=== PATIENT | female | born 1945 | race Hispanic/Latino ===

== ENCOUNTER 2017-12-21 09:11 | Emergency (ER) | payer MEDICARE ==
[~2017-12-21 09:11] MED LIST: HYDR-2132 PO; LOSA50TA37 PO; RIVA10TA PO
[2017-12-21] MEDS ORDERED: DIAZEPAM 5 MG TABLET ONE (09:37)
[2017-12-21 10:52] LABS: ALBUMIN 3.7 g/dL (3.5-5.0); BILIRUBIN,TOTAL 0.3 mg/dL (0.2-1.0); CREATININE 0.7 mg/dL (0.5-1.5); POTASSIUM 4.7 mmol/L (3.5-5.1); TOTAL PROTEIN, SERUM 7.7 g/dL (6.0-8.3)
== END 2017-12-21 11:59 | disposition home or self-care (01) ==
LOC: EDH 09:11
DX: M43.6 Torticollis (principal); R03.0 Elevated blood-pressure reading, without diagnosis of hypertension
CPT/HCPCS: 36415; 71045; 80053; 82550; 84484; 93005

== ENCOUNTER 2017-12-30 15:38 | Emergency (ER) | payer MEDICARE ==
[2017-12-30] MEDS ORDERED: IBUPROFEN 400 MG TABLET ONE (16:15)
== END 2017-12-30 17:20 | disposition home or self-care (01) ==
LOC: EDH 15:38
DX: S16.1XXA Strain of muscle, fascia and tendon at neck level, initial encounter (principal); S46.812A Strain of other muscles, fascia and tendons at shoulder and upper arm level, left arm, initial encounter; S46.811A Strain of other muscles, fascia and tendons at shoulder and upper arm level, right arm, initial encounter; X50.3XXA Overexertion from repetitive movements, initial encounter; Y93.89 Activity, other specified; Y92.89 Other specified places as the place of occurrence of the external cause; Y99.8 Other external cause status
CPT/HCPCS: 72040

== ENCOUNTER 2018-05-24 16:01 | Emergency (ER) | payer MEDICARE ==
[~2018-05-24 16:01] MED LIST changes: +LOSA50TA25 PO; -LOSA50TA37 PO
[2018-05-24] MEDS ORDERED: MORPHINE SULFATE 4 MG/1ML SYG ONE (17:34)
== END 2018-05-24 19:08 | disposition home or self-care (01) ==
LOC: EDH 16:01
DX: M54.5 Low back pain (principal); I10 Essential (primary) hypertension; Z98.890 Other specified postprocedural states
CPT/HCPCS: 72131; 96372; 99284; J2270

== ENCOUNTER 2019-06-09 09:13 | Emergency (ER) | payer MEDICARE ==
[~2019-06-09 09:13] MED LIST changes: -LOSA50TA25 PO; +LOSA50TA64 PO
[2019-06-09] MEDS ORDERED: ACETAMINOPHEN-CODEINE 300/30MG TAB ONE (10:23)
[2019-06-09] MEDS ORDERED: TETANUS/DIPHTHERIA TOXOID [ADULT] 0.5 ML VIAL IM ONE (10:24)
[2019-06-09] MEDS ORDERED: OCTYL 2-CYANOACRYLATE 1 EACH TP ONE (11:09)
== END 2019-06-09 12:26 | disposition home or self-care (01) ==
LOC: EDH 09:13
DX: S01.111A Laceration without foreign body of right eyelid and periocular area, initial encounter (principal); I10 Essential (primary) hypertension; W18.39XA Other fall on same level, initial encounter; Y93.89 Activity, other specified; Y92.89 Other specified places as the place of occurrence of the external cause; Y99.8 Other external cause status
CPT/HCPCS: 12011; 70450; 70486; 72125; 90471; 90714; 93005

== ENCOUNTER 2020-02-19 06:50 | Inpatient (IN) | payer MEDICARE ==
[2020-02-15 12:35] LABS: APPEARANCE,URINE Clear (CLEAR); BILIRUBIN,URINE Negative (NEGATIVE); COLOR,URINE Yellow (YELLOW); GLUCOSE, URINE (UA) Negative (NEGATIVE); KETONES,URINE Negative (NEGATIVE); LEUKOCYTE ESTERASE ,URINE Negative (NEGATIVE); NITRATE,URINE Negative (NEGATIVE); OCCULT BLOOD,URINE Negative (NEGATIVE); PROTEIN,URINE Negative (NEGATIVE)
[2020-02-15 13:11] LABS: INR 1.07 (0.85-1.15); PROTHROMBIN TIME 11.5 SEC (9.6-11.6)
[2020-02-18 15:08] VITALS: BP 147/57
[2020-02-19] VITALS (25 sets, daily range): BP systolic 113–173; BP diastolic 45–82
[~2020-02-19] VITALS: Ht 147.3 cm; Wt 57.6 kg
[~2020-02-19 06:50] MED LIST changes: +DICL4100G TP; +ERGO500014 PO; -HYDR-2132 PO; +MEMA1CAP4 PO; +QUET25TA PO; -RIVA10TA PO
--- NOTE | 2020-02-19 08:30 | NUR ---
preop pt made comfortable in bed. pt alert and oriented at this time but according to daughter pt does have dementia and will get agitated later in the day. will have daughter sign consents. pt does have large bruise to left upper arm from old blood draw. daughter left with pt in room
[2020-02-19] MEDS ORDERED: LACTATED RINGERS 1000ML 1,000 ML IV ONE (08:47)
[2020-02-19] MEDS: CEFAZOLIN SODIUM 1 GM VIAL IVP ONE ×2 (09:33→11:20)
--- NOTE | 2020-02-19 09:49 | NUR ---
edema left knee Addendum: 02/19/20 at 0954 by CHARI ALONZO RN RN Amended: Links added.
[2020-02-19] MEDS ORDERED: CEFAZOLIN SODIUM 1 GM VIAL ONE (10:00)
--- NOTE | 2020-02-19 10:39 | NUR ---
BELONGINGS DAUGHTER TOOK BELONGINGS AND TAKEN TO OR VIA BED
[2020-02-19] MEDS ORDERED: LIDOCAINE PF 2% 5ML ABBOJECT ONE (10:40)
[2020-02-19] MEDS ORDERED: DEXAMETHASONE SOD PHOSPHATE 10MG/ML 1ML VIAL ONE (10:41)
[2020-02-19] MEDS ORDERED: ONDANSETRON HCL 4 MG/2 ML VIAL ONE (10:41)
[2020-02-19] MEDS ORDERED: FENTANYL CITRATE PF 50 MCG/1 ML 2ML VIAL ONE (10:41)
[2020-02-19] MEDS ORDERED: PROPOFOL 10 MG/ML 20ML VIAL IV ONE (10:41)
[2020-02-19] MEDS ORDERED: MIDAZOLAM HCL 1 MG/ML 2ML VIAL ONE (10:41)
[2020-02-19] MEDS ORDERED: ROCURONIUM 10MG/1ML SYR 10 MG/ML ML ONE (10:42)
[2020-02-19] MEDS ORDERED: ROPIVACAINE 0.5% 5MG/ML 30ML IJ ONE (10:54)
[2020-02-19] MEDS ORDERED: EPHEDRINE SULFATE 50 MG/ML AMPULE ONE (11:00)
[2020-02-19] MEDS ORDERED: TRANEXAMIC ACID 1000MG/10ML ONE (11:43)
[2020-02-19] MEDS ORDERED: CEFAZOLIN SODIUM 1 GM VIAL IRRIG ONE (11:55)
[2020-02-19] MEDS ORDERED: GLYCOPYRROLATE 1 MG/5 ML SYRINGE ONE (12:31)
[2020-02-19] MEDS ORDERED: NEOSTIGMINE 5MG/5ML SYR IV ONE (12:31)
[2020-02-19] MEDS: SODIUM CHLORIDE 0.9% 1000ML 1,000 ML IV SCH ×2 (12:38→21:38)
[2020-02-19] MEDS ORDERED: LIDOCAINE HCL-MPF 1% 2ML VIAL IV PRN (12:45)
[2020-02-19] MEDS ORDERED: FERROUS FUMARATE 324 MG TABLET PO PRN (12:45)
[2020-02-19] MEDS ORDERED: TEMAZEPAM 15 MG CAPSULE PO PRN (12:45)
[2020-02-19] MEDS: ACETAMINOPHEN EXTRA STRENGTH 500 MG TABLET PO SCH ×2 (12:45→20:01)
[2020-02-19] MEDS ORDERED: DiphenhydrAMINE HCL 50 MG/ML VIAL IVP PRN (12:45)
[2020-02-19] MEDS ORDERED: KETOROLAC TROMETHAMINE 15MG/ML IV PRN (12:45)
[2020-02-19] MEDS ORDERED: POTASSIUM CHLORIDE 20 MEQ ERTAB PO PRN (12:45)
[2020-02-19] MEDS ORDERED: ONDANSETRON HCL 4 MG/2 ML VIAL IVP PRN (12:45)
[2020-02-19] MEDS ORDERED: TRAMADOL HCL 50 MG TABLET PO PRN (12:45)
[2020-02-19] MEDS ORDERED: POTASSIUM CHLORIDE 20MEQ/100ML 100 ML IV PRN (12:45)
[2020-02-19] MEDS ORDERED: CALCIUM CARBONATE 500 MG TABLET PO PRN (12:45)
[2020-02-19] MEDS ORDERED: POTASSIUM CHLORIDE 10% ELIXIR 20 MEQ/15 ML UDCUP PO PRN (12:45)
[2020-02-19] MEDS ORDERED: MEPERIDINE-PF 25 MG/ML SYG ONE ×2 (13:22→13:39)
[2020-02-19] MEDS: OXYCODONE HCL 5 MG TAB PO PRN ×2 (14:58→23:52)
--- NOTE | 2020-02-19 16:29 | NUR ---
pt is very drowsy with severe pain to involved extremity.Explain to patient that Physical therapist will come in tomorrow to initiate PT Evaluation and treatment.Patient verbally agreed.Notified MARVIN Mi regarding pt's current condition and not able to initiate skilled Physical Therapy evaluation this PM. Addendum: 02/19/20 at 1633 by RON LI, PT PT Amended: Links added.
--- NOTE | 2020-02-19 17:00 | NUR ---
cm note met with patient and states resides at home alone, independent [facility] ambulation and adls. no dme. no services, has 2 daughters that assist her as needed. [facility]. request i speak to daughter ron, call made to ron daughter and states dcplan is to [facility]. choice letter obtained, referral faxed darshana haynes, Addendum: 02/19/20 at 1818 by DAVY MANJARREZ CM Amended: Links added.
[2020-02-19] MEDS: CEFAZOLIN SODIUM 1 GM VIAL IVP SCH (17:37)
[2020-02-19 17:46] LABS: BF LYMPHOCYTE 91 %
[2020-02-19 18:08] LABS: APPEARANCE BODY FLUID BLOODY (CLEAR); BODY FLUID WBC 19 /cu. mm.; COLOR,BODY FLUID PINK (LT YELLOW); SPECIMENTYPE,BODY FLUID SYNOVIAL; TOTAL VOLUME,BODY FLUID 5 mL
[2020-02-19 18:09] LABS: BODY FLUID RBC 6625 /cu. mm.
--- NOTE | 2020-02-19 18:18 | NUR ---
cm note spoke to alison thomas at [facility]/ [facility] and states pt is accepted, also updated daughter ron, agreeable to referral to [facility] referral information was faxed to [facility],for walker and 3 in 1 bsc for after snf if needed. daughter verbalizes understanding. informed will needvan transport at dc. and possible dc this weekend. verbalizes understanding.
[2020-02-19] MEDS: FAMOTIDINE 20MG TAB 20 MG TAB PO SCH (20:00)
[2020-02-19] MEDS: MEMANTINE HCL PO SCH (20:00)
[2020-02-19] MEDS: DONEPEZIL HCL PO SCH (20:00)
[2020-02-19] MEDS: QUETIAPINE FUMARATE 25 MG TAB PO SCH (20:01)
[2020-02-19] MEDS: ASPIRIN 81MG TAB.CHEW PO SCH (20:01)
[2020-02-19 22:10] LABS: CRYSTALS, SYNOVIAL FLUID SEE SEPARATE REPORT
--- NOTE | 2020-02-19 23:00 | NUR ---
activity sat at bedside with feet touching floor tolerated well, encourage is as previously done, back to bed, left knee with leti dressing intact with negative pressure,tolerated well
[2020-02-20] MEDS: CEFAZOLIN SODIUM 1 GM VIAL IVP SCH (01:09)
[2020-02-20] MEDS: SODIUM CHLORIDE 0.9% 1000ML 1,000 ML IV SCH (04:00)
[2020-02-20] MEDS: ACETAMINOPHEN EXTRA STRENGTH 500 MG TABLET PO SCH ×3 (04:10→20:28)
[2020-02-20 04:38] VITALS: BP 118/53
[2020-02-20 05:26] LABS: HEMATOCRIT 32.5 % (36-48); MEAN CORPUSCULAR HEMOGLOBIN 29.5 pg (27.0-33.0); MEAN CORPUSCULAR HGB CONC 32.6 g/dL (32.0-36.0); MEAN CORPUSCULAR VOLUME 90.5 fL (79-99); RED BLOOD CELL COUNT(AUTO) 3.59 MIL/uL (4.00-5.50); RED CELL DISTRIBUTION WIDTH 12.7 % (11.0-15.5); WHITE BLOOD COUNT (AUTO) 8.2 K/uL (4.8-10.8)
[2020-02-20 05:45] LABS: CREATININE 0.9 mg/dL (0.5-1.5); POTASSIUM 4.4 mmol/L (3.5-5.1)
[2020-02-20 07:57] VITALS: BP 116/55
[2020-02-20] MEDS: POLYETHYLENE GLYCOL 3350 17 GM POWD.PACK PO SCH (08:30)
[2020-02-20] MEDS: FAMOTIDINE 20MG TAB 20 MG TAB PO SCH ×2 (08:30→20:28)
[2020-02-20] MEDS: ASPIRIN 81MG TAB.CHEW PO SCH ×2 (08:30→20:48)
[2020-02-20] MEDS: LOSARTAN 50 MG TABLET PO SCH (08:30)
[2020-02-20] MEDS: OXYCODONE HCL 5 MG TAB PO PRN ×2 (08:31→12:56)
[2020-02-20] MEDS ORDERED: APPL TP PRN (09:00)
[2020-02-20] MEDS ORDERED: DICLOFENAC SODIUM TP PRN (09:00)
[2020-02-20 11:25] VITALS: BP 120/55
--- NOTE | 2020-02-20 12:00 | NUR ---
CM NOTE CM spoke to Catalina with [facility] facility. States pt may transfer and does not need 3 midnights.
[2020-02-20 16:22] VITALS: BP 111/56
[2020-02-20 19:24] VITALS: BP 146/49
[2020-02-20] MEDS ORDERED: ACETAMINOPHEN EXTRA STRENGTH 500 MG TABLET ONE (20:17)
[2020-02-20] MEDS: QUETIAPINE FUMARATE 25 MG TAB PO SCH (20:29)
[2020-02-20] MEDS: DONEPEZIL HCL PO SCH (20:29)
[2020-02-20] MEDS: MEMANTINE HCL PO SCH (20:29)
[2020-02-20 23:44] VITALS: BP 137/65
[2020-02-21 03:21] VITALS: BP 163/70
[2020-02-21] MEDS: ACETAMINOPHEN EXTRA STRENGTH 500 MG TABLET PO SCH ×3 (05:11→21:07)
[2020-02-21 08:01] VITALS: BP 135/58
[2020-02-21] MEDS: FAMOTIDINE 20MG TAB 20 MG TAB PO SCH ×2 (08:48→21:06)
[2020-02-21] MEDS: LOSARTAN 50 MG TABLET PO SCH (08:49)
[2020-02-21] MEDS: ASPIRIN 81MG TAB.CHEW PO SCH ×2 (08:49→21:06)
[2020-02-21] MEDS: OXYCODONE HCL 5 MG TAB PO PRN ×2 (08:49→12:56)
[2020-02-21] MEDS: POLYETHYLENE GLYCOL 3350 17 GM POWD.PACK PO SCH (08:49)
[2020-02-21 11:20] VITALS: BP 147/58
[2020-02-21 16:52] VITALS: BP 136/56
[2020-02-21 20:00] VITALS: BP 171/58
[2020-02-21] MEDS: DONEPEZIL HCL PO SCH (21:00)
[2020-02-21] MEDS: MEMANTINE HCL PO SCH (21:00)
[2020-02-21] MEDS: QUETIAPINE FUMARATE 25 MG TAB PO SCH (21:06)
[2020-02-21 23:41] VITALS: BP 163/74
[2020-02-22 03:44] VITALS: BP 145/68
[2020-02-22] MEDS: ACETAMINOPHEN EXTRA STRENGTH 500 MG TABLET PO SCH ×2 (04:45→12:28)
[2020-02-22 07:30] VITALS: BP 142/68
[2020-02-22] MEDS: FAMOTIDINE 20MG TAB 20 MG TAB PO SCH (09:20)
[2020-02-22] MEDS: POLYETHYLENE GLYCOL 3350 17 GM POWD.PACK PO SCH (09:20)
[2020-02-22] MEDS: ASPIRIN 81MG TAB.CHEW PO SCH (09:21)
[2020-02-22] MEDS: LOSARTAN 50 MG TABLET PO SCH (09:21)
[2020-02-22] MEDS: OXYCODONE HCL 5 MG TAB PO PRN (09:21)
[2020-02-22 11:00] VITALS: BP 136/65
[2020-02-22] MEDS ORDERED: BISACODYL 10 MG SUPP.RECT RC PRN (12:45)
[2020-02-22 16:00] VITALS: BP 165/85
[2020-02-22] MEDS ORDERED: ASPI-1005 PO (16:05)
[2020-02-22] MEDS ORDERED: HYDR-4457 PO (16:05)
--- NOTE | 2020-02-22 18:30 | NUR ---
d/c paperwork complete, d/c report has been called and faxed to jason at [facility]; i have called pt's daughter bismark on the phone and let her know that pt is going to be d/c now to snf and she stated underestanding; iv access was removed; leti dressing was changed to left knee; pt has a well approx. inc. line with absorbable sutures in place, no drainage or redness noted, small amount of generalized knee edema; area cleansed with betadine then new leti dressing applied; pt kris. proc. well; at this time pt's daughter showed up and i went over all d/c instructions with her since the pt has dementia and alzheimes; instructions included after care for a knee replacement, how to care for a leti dressing and that it needs to be removed this coming saturday at detention, activity limitations, script for pain meds and blood thinners and to call dr [place] office if they have any problems with pain control on the meds or bleeding; also to watch for any signs or symptoms of infection or other problems with surgical area.
[2020-02-26] MEDS ORDERED: ERGOCALCIFEROL (VITAMIN D2) 50,000 UNIT CAPSULE PO SCH (09:00)
== END 2020-02-22 18:45 | DRG 489 ==
LOC: DAHIP 06:50 → 3DH 14:29
PROVIDERS: ADMIT Orthopaedic Surgery; ATTEND Orthopaedic Surgery
PROC: 0MNP0ZZ Release Left Knee Bursa and Ligament, Open Approach (ICD-10-PCS; 2020-02-19)
PROC: 0SPD09Z Removal of Liner from Left Knee Joint, Open Approach (ICD-10-PCS; principal; 2020-02-19 10:40)
PROC: 0SUW09Z Supplement Left Knee Joint, Tibial Surface with Liner, Open Approach (ICD-10-PCS; 2020-02-19 10:40)
PROC: 0HBLXZZ Excision of Left Lower Leg Skin, External Approach (ICD-10-PCS; 2020-02-19 10:40)
DX: M25.862 Other specified joint disorders, left knee (principal); M23.8X2 Other internal derangements of left knee; Z20.828 Contact with and (suspected) exposure to other viral communicable diseases; F03.90 Unspecified dementia, unspecified severity, without behavioral disturbance, psychotic disturbance, mood disturbance, and anxiety; I10 Essential (primary) hypertension; Z96.653 Presence of artificial knee joint, bilateral; Y83.8 Other surgical procedures as the cause of abnormal reaction of the patient, or of later complication, without mention of misadventure at the time of the procedure; Y92.89 Other specified places as the place of occurrence of the external cause
CPT/HCPCS: 36415; 80048; 81003; 85027; 85610; 87070; 87076; 87205; 87635; 87641; 88300; 88305; 89051; 89060; 97039; G0378; J0690; J1100; J1885; J2001; J2175; J2250; J2405; J2704; J2710; J2795; J3010; J3490; J7030; J7120; U0003

== ENCOUNTER 2021-07-31 15:24 | Emergency (ER) | payer MEDICARE ==
[~2021-07-31] VITALS: Ht 149.9 cm; Wt 62.6 kg
[~2021-07-31 15:24] MED LIST changes: +ASPI-1005 PO; -DICL4100G TP; -ERGO500014 PO; +ERGO500093 PO; +HYDR-4457 PO
[2021-07-31] MEDS ORDERED: ACETAMINOPHEN 500 MG TABLET PO ONE (16:30)
[2021-07-31] MEDS ORDERED: ACETAMINOPHEN 500 MG TABLET ONE (16:49)
[2021-07-31] MEDS ORDERED: ACET-2247 PO (16:51)
[2021-07-31 17:12] VITALS: BP 154/74
== END 2021-07-31 17:17 | disposition home or self-care (01) ==
LOC: EDH 15:24
DX: M25.512 Pain in left shoulder (principal); M79.662 Pain in left lower leg; I10 Essential (primary) hypertension; F03.90 Unspecified dementia, unspecified severity, without behavioral disturbance, psychotic disturbance, mood disturbance, and anxiety; Z79.82 Long term (current) use of aspirin; Z79.899 Other long term (current) drug therapy
CPT/HCPCS: 73030; 73060

== ENCOUNTER 2025-04-13 16:07 | Inpatient (IN) | payer MEDICARE, MEDICAID ==
[~2025-04-13] VITALS: Ht 154.9 cm; Wt 65.8 kg
[~2025-04-13 16:07] MED LIST changes: +ACET-2247 PO
--- NOTE | 2025-04-13 17:35 | ERN ---
General Chief Complaint: Mechanical Fall Stated Complaint: FALL Time Seen by MD: 16:11 Source: patient History of Present Illness Initial Comments Patient is a 79-year-old female coming in complaining of hip pain. Per patient she was walking into the shower slipped landing on her left hip. She states that she has pain in his left 5th pain in the right hip as well. Allergies: Coded Allergies: No Known Drug Allergies (Unverified Allergy, 03/26/12) Home Meds Active Scripts Acetaminophen (Tylenol) 325 Mg Tablet, 650 MG PO QIDP, #50 TAB Prov:FRANCISCO JAVIER HARRINGTON 07/31/21 Hydrocodone/Acetaminophen ([place] 5-325 Tablet) 1 Each Tablet, 1-2 EACH PO Q6HPRN PRN for PAIN, #60 TAB Prov:PÉREZ QUINTERO MD 02/22/20 Aspirin (ASPIRIN 81MG CHEW TAB) 81 Mg Tab.chew, 81 MG PO BID, #60 TAB.CHEW Prov:PÉREZ QUINTERO MD 02/22/20 Reported Medications Ergocalciferol (Vitamin D2) (Vitamin D2) 1,250 Mcg Capsule, 1250 MCG PO QWEEK, CAP 02/18/20 Quetiapine Fumarate (Seroquel) 25 Mg Tablet, 25 MG PO HS, TAB 02/18/20 Memantine HCl/Donepezil HCl (Namzaric 7 mg-10 mg Capsule) 1 Each Cap.spr.24, 1 EACH PO HS, CAP 02/18/20 Losartan Potassium (Losartan Potassium) 50 Mg Tablet, 50 MG PO DAILY, TAB 01/25/15 Past Medical History Past Medical History: Dementia, Hypertension Medical History Other: Paranoia Past Surgical History: None Surgical History Other: BILATERAL KNEE SURGERY ROS Dictation CONSTITUTIONAL: No chills, no fever, no weakness, no diaphoresis, no malaise. HEAD/FACE: No signs of trauma. EENT: No eye pain, no blurred vision, no tearing, no double vision, no ear pain, no ear discharge, no nose pain, no nasal congestion, no throat pain, no throat swelling, no mouth pain. RESPIRATORY: No cough, no orthopnea, no SOB, no stridor, no wheezing. CARDIOVASCULAR: No chest pain, no edema, no palpitations, no syncope. GASTROINTESTINAL/ABDOMINAL: No abdominal pain, no constipation, no diarrhea, no nausea, no vomiting. GENITOURINARY: No abnormal discharge, no dysuria, no frequent urination, no h ematuria. No complaints of pain in the genitals. MUSCULOSKELETAL: No back pain, no gout, joint pain, joint swelling, muscle pain, no muscle stiffness, no neck pain. INTEGUMENTARY: No change in color, no change in hair/nails, no dryness, no lesion, no lumps, no rash. NEUROLOGICAL/PSYCH: No anxiety, not depressed, no emotional problem, no headache, no numbness, no pre-existing deficit, no history of seizures, no tremors, no weakness. HEMATOLOGIC/LYMPHATIC: Not anemic, no history of blood clots, no apparent bleeding, no bruising, glands not swollen. All Systems Negative, Except as Noted. Physical Exam Physical Exam Dictation VITAL SIGNS: Reviewed. GENERAL APPEARANCE: Alert, oriented x3, no acute distress, obese. HEAD AND FACE: Non-traumatic. EYES: PERRL, pink conjunctivas, eyelid no trauma, anterior chamber clear. EARS: Pinnas intact and no signs of trauma or erythema. Ear canals clear and no discharge. TMs no erythema. NOSE: No discharge, no bleeding. OROPHARYNX: Mouth normal, teeth no caries, tongue pink. Pharynx clear, no erythema. Tonsils no exudates, no abscesses noted. Mucous membrane moist. NECK: Supple, non-tender, no thyromegaly, no masses, no JVD, no bruits. BREAST: Deferred. CHEST: No tenderness, no crepitus, no paradoxical movement, no retractions. LUNGS: Clear, well-ventilated, symmetric, no rales, no wheezing, no rhonchi, no stridor, good breath sounds bilaterally. HEART: Regular rate, regular rhythm, no murmur, no gallops. VASCULAR: No peripheral edema. ABDOMEN: Soft, positive bowel sounds, nondistended, no guarding, nontender, no rebound, no masses no hepatomegaly, no splenomegaly, no Montana's sign, no hernias. RECTAL: Deferred. GENITAL: Deferred. NEUROLOGICAL: Normal speech, gross motor function intact, gross sensory function intact. MUSCULOSKELETAL: Neck nontender, full range of motion, back nontender, full range of motion. EXTREMITIES: Nontender, full range of motion. Right hip pain on palpation logroll positive SKIN: Color pink, dry, no turgor, no rash, no lacerations, no abrasions, no contusions. LYMPHATICS: Deferred. Results Laboratory and Microbiology Lab and Micro Result Laboratory Tests Test 04/13/25 17:52 04/13/25 18:28 Urine Color YELLOW (YELLOW) Urine Appearance TURBID (CLEAR) Urine pH 8.0 (5.0-8.0) Urine Specific [place] 1.020 (1.001-1.031) Urine Protein 50 mg/dL (NEGATIVE) H Urine Glucose (UA) NEGATIVE mg/dL (NEGATIVE) Urine Ketones NEGATIVE mg/dL (NEGATIVE) Urine Occult Blood SMALL (NEGATIVE) H Urine Nitrate NEGATIVE (NEGATIVE) Urine Bilirubin NEGATIVE mg/dL (NEGATIVE) Urine Urobilinogen 2.0 mg/dL (0.2-1.0) H Urine Leukocyte Esterase 500 Wanda/uL (NEGATIVE) H Urine RBC 6-10 /HPF (0-1) H Urine WBC 51-100 /HPF (0-1) H Urine Squamous Epithelial Cells RARE /HPF (0-2) Urine Non-Squamous Epithelial Cells 3 /HPF (0-2) Urine Other Crystals (Auto) 21 /HPF (None Seen) Urine Bacteria FEW /HPF (None Seen) Urine Yeast RARE /HPF (None Seen) White Blood Count 7.7 K/uL (4.8-10.8) Red Blood Count 3.97 MIL/uL (4.00-5.50) L Hemoglobin 12.4 g/dL (12.0-16.0) Hematocrit 37.8 % (36-48) Mean Corpuscular Volume 95.2 fL (79-99) Mean Corpuscular Hemoglobin 31.2 pg (27.0-33.0) Mean Corpuscular Hemoglobin Concent 32.8 g/dL (32.0-36.0) Red Cell Distribution Width 12.6 % (11.0-15.5) Platelet Count 229 K/uL (130-400) Mean Platelet Volume 9.5 fL (7.5-10.5) Immature Granulocyte % (Auto) 0.4 % (0-1) Neutrophils (%) (Auto) 68.9 % (40.0-77.0) Lymphocytes (%) (Auto) 19.9 % (21.0-51.0) L Monocytes (%) (Auto) 9.1 % (3.0-13.0) Eosinophils (%) (Auto) 1.2 % (0.0-8.0) Basophils (%) (Auto) 0.5 % (0.0-5.0) Neutrophils # (Auto) 5.3 K/uL (1.8-7.7) Lymphocytes # (Auto) 1.5 K/uL (1.0-4.8) Monocytes # (Auto) 0.7 K/uL (0.1-1.0) Eosinophils # (Auto) 0.09 K/uL (0.00-0.70) Basophils # (Auto) 0.04 K/uL (0.00-0.20) Absolute Immature Granulocyte (auto 0.03 K/uL (0-1) Nucleated Red Blood Cells 0.0 % (0.0-0.19) Sodium Level 141 mmol/L (136-145) Potassium Level 4.2 mmol/L (3.5-5.1) Chloride Level 106 mmol/L (101-111) Carbon Dioxide Level 26 mmol/L (21-32) Blood Urea Nitrogen 32 mg/dL (7-18) H Creatinine 0.9 mg/dL (0.5-1.0) Glomerular Filtration Rate Calc 65 mL/min (>90) Random Glucose 98 mg/dL (70-105) Total Calcium 10.3 mg/dL (8.5-10.1) H Labs Reviewed?: Yes EKG/XRAY/US/CT/MRI X-RAY Comment [address] [address] IMAGING REPORT Signed PATIENT: SUSAN ROTH MR#: [id number] : 1945 SEX: F AGE: 79 LOCATION: [facility] ORDER 55 STATUS: REG ER REPORT#: [id number] SERVICE 55 REASON: fall ORDERING PHYSICIAN: MONICA ADAMES MD PROCEDURE: HIPS B 3V - HIP BILAT 3-4VW EXAM: CR left Hip, 1 View. CLINICAL HISTORY: fall COMPARISON: None provided. FINDINGS: BONES: Protrusio defect left hip equivocal left hip subcapital fracture. Correlation with CT scan recommended JOINTS: Degenerative changes SOFT TISSUES: The soft tissues are unremarkable. IMPRESSION: 1. Degenerative changes 2. Protrusio defect left hip equivocal left hip subcapital fracture. Correlation with CT scan recommended /[place] DICTATED BY: SHYANNE RAMIREZ MD DATE: 04/13/251920 ELECTRONICALLY SIGNED BY: SHYANNE RAMIREZ MD DATE: 04/13/251920 CT Scan Comment [facility] [address] [place] [address] IMAGING REPORT Signed PATIENT: SUSAN ROTH MR#: [id number] : 1945 SEX: F AGE: 79 LOCATION: [facility] ORDER 46 STATUS: [facility] ER REPORT#: [id number] SERVICE 45 REASON: left hip pain ORDERING PHYSICIAN: MONICA ADAMES MD PROCEDURE: LOW EXT WO - CT LOW EXT W/O CONTRAST EXAM: CT left Hip, without IV contrast. CLINICAL HISTORY: left hip pain TECHNIQUE: Axial images were acquired through the left hip without IV contrast. Reformatted images were reviewed. COMPARISON: None provided. FINDINGS: BONES: No fracture evident. JOINTS: Mild to moderate degenerative changes SOFT TISSUES: No evidence of hematoma MISCELLANEOUS: Slight central protrusio defect. IMPRESSION: 1. Mild to moderate degenerative changes 2. No fracture evident. 3. Slight central protrusio defect. 4. No evidence of hematoma /[place] DICTATED BY: SHYANNE RAMIREZ MD DATE: 04/13/251955 ELECTRONICALLY SIGNED BY: SHYANNE RAMIREZ MD DATE: 04/13/251955 MDM MDM: Differential diagnosis: Subcapsular fracture left hip, UTI Rationale: Tests considered and ordered secondary to shared decision making include: labs, ECG and radiology Previous outside records reviewed: Old ER visits. Risk of complication and/or morbidity or mortality of patient management: None Medications-Per medication reconciliation Need for hospitalization: Patient does meet criteria for hospitalization. Need for emergency major/minor surgery: No There are no social concerns with this patient. Prescription drug management Prescriptions will include symptomatic care Patient's prior external medical records from other ER visits were reviewed by me as indicated. Prior testing and results from previous visits were reviewed. Prior tests were taken into account with medical decision making and resource utilization, independent historian/historians were used to obtain complete medical history. I independently interpreted the test that were performed, results were reviewed by me and considered findings on radiology if ordered. Medical management and examination interpretation discussions were had by me with other qualified healthcare professionals as indicated for the patient's care. ED Course Orders Procedure Category Date Status Time Hip Bilat 3-4vw RAD 04/13/25 Resulted 16:56 Urinalysis LAB 04/13/25 Complete W/Microscopic 17:16 Ct Low Ext W/O CT 04/13/25 Resulted Contrast 17:46 Cbc With Differential LAB 04/13/25 Complete 18:04 Basic Metabolic Panel LAB 04/13/25 Complete 18:04 Culture Urine JAVIER 04/13/25 In Process 18:04 Ceftriaxone 1g Vial PHA 04/13/25 Complete (Rocephine 1g Inj) 18:30 Current Medications Medications (Trade) Dose Ordered Sig/Nain Route PRN Reason Start Time Stop Time Status Last Admin Dose Admin Ceftriaxone Sodium (ROCEphine 1G INJ) 1 gm ONCE ONCE IVPB 04/13/25 18:30 04/13/25 18:31 DC 04/13/25 18:16 Vital Signs Date Time Temp Pulse Resp B/P (MAP) Pulse Ox O2 Delivery O2 Flow Rate FiO2 04/13/25 18:46 98.8 65 16 113/59 98 Room Air* 0 21 04/13/25 16:29 98.2 95 16 142/81 95 Room Air* 0 21 04/13/25 16:29 98.2 95 16 142/81 95 Room Air 0 DX & DISP Disposition: Other(Comment) (BE TRANSITIONED TO DR. DIALLO) Departure Impression: Primary Impression: UTI (urinary tract infection) Additional Impression: Fall Condition: Stable Referrals: JULIANNE BROWN (PCP) MONICA ADAMES MD Apr 13, 2025 17:35
[2025-04-13 17:59] LABS: APPEARANCE,URINE TURBID (CLEAR); GLUCOSE, URINE (UA) NEGATIVE (NEGATIVE); LEUKOCYTE ESTERASE ,URINE 500 Leu/uL (NEGATIVE); NITRATE,URINE NEGATIVE (NEGATIVE); OCCULT BLOOD,URINE SMALL (NEGATIVE)
[2025-04-13 18:04] LABS: NON-SQUAMOUS EPITHELIAL CELL 3 /HPF (0-2); SQUAMOUS EPITHELIAL CELL,UR RARE /HPF (0-2); UNCLASSIFIED CRYSTAL 21 /HPF (None Seen); YEAST,URINE BUDDING RARE /HPF (None Seen)
--- NOTE | 2025-04-13 18:08 | HMCIMG ---
EXAM: CR left Hip, 1 View. CLINICAL HISTORY: fall COMPARISON: None provided. FINDINGS: BONES: Protrusio defect left hip equivocal left hip subcapital fracture. Correlation with CT scan recommended JOINTS: Degenerative changes SOFT TISSUES: The soft tissues are unremarkable. IMPRESSION: 1. Degenerative changes 2. Protrusio defect left hip equivocal left hip subcapital fracture. Correlation with CT scan recommended /[place]
[2025-04-13 18:34] LABS: IMMATURE GRANULOCYTE ABSOLUTE 0.03 K/uL (0-1); NUCLEATED RED BLOOD CELLS 0.0 % (0.0-0.19); PLATELET COUNT (AUTO) 229 K/uL (130-400); RED BLOOD CELL COUNT(AUTO) 3.97 MIL/uL (4.00-5.50); RED CELL DISTRIBUTION WIDTH 12.6 % (11.0-15.5); WHITE BLOOD COUNT (AUTO) 7.7 K/uL (4.8-10.8)
[2025-04-13 18:43] LABS: CREATININE 0.9 mg/dL (0.5-1.0); GLOMERULAR FILTR. RATE CALC 65.0 mL/min (>90); GLUCOSE,RANDOM 98.0 mg/dL (70-105); SODIUM SERUM 141.0 mmol/L (136-145); UREA NITROGEN, BLOOD 32.0 mg/dL (7-18)
--- NOTE | 2025-04-13 18:57 | HMCIMG ---
EXAM: CT left Hip, without IV contrast. CLINICAL HISTORY: left hip pain TECHNIQUE: Axial images were acquired through the left hip without IV contrast. Reformatted images were reviewed. COMPARISON: None provided. FINDINGS: BONES: No fracture evident. JOINTS: Mild to moderate degenerative changes SOFT TISSUES: No evidence of hematoma MISCELLANEOUS: Slight central protrusio defect. IMPRESSION: 1. Mild to moderate degenerative changes 2. No fracture evident. 3. Slight central protrusio defect. 4. No evidence of hematoma /[place]
[2025-04-13] MEDS ORDERED: HYDROcodone/APAP 5/325 1 TAB TABLET PO PRN ×2 (19:30→20:00)
[2025-04-13] MEDS ORDERED: PoTASSium chloRIDE 20MEQ ER 20 MEQ ERTAB PO PRN (19:30)
[2025-04-13] MEDS ORDERED: GLUCAGON 1MG KIT 1 MG ML IM PRN (19:30)
[2025-04-13] MEDS ORDERED: PoTASSium chl 10% ELIXIR 20MEQ 20 MEQ/15 ML UDCUP PO PRN (19:30)
[2025-04-13] MEDS ORDERED: DEXTROSE 50%-WATER 50 ML DISP.SYRIN IV PRN (19:30)
[2025-04-13] MEDS ORDERED: LACTULOSE 20 GM/30 ML UDCUP PO PRN (19:30)
--- NOTE | 2025-04-13 19:39 | HP ---
[facility] HISTORY AND PHYSICAL Date of Service: Apr 13, 2025 Time of Service: 19:39 PCP: Dr. Aleisha Ha ATTENDING/SUPERVISING PHYSICIAN: Dr. Ashraf and Dr. Kerrie Miller HISTORY OF PRESENT ILLNESS: Ms. Ann is a 79-year-old female with a history of dementia, paranoia, and hypertension who presented to [facility] ED for evaluation of left hip pain s/p fall injury. Per patient she was walking into the shower slipped landing on her left hip. The patient stated that she was on the floor for hours until her daughter came to visit her. She reports that she lives alone. Son at bedside reports that patient has slight dementia, is very forgetful and stubborn, and does not want to live with her family members. He reports that she has fallen before and that the prior time he told her that her niece/legs gave out. CT left hip: 1. Mild to moderate degenerative changes. 2. No fracture evident. 3. Slight central protrusio defect. 4. No evidence of hematoma. UA positive for leuk EST. Labs are unremarkable. WBCs WNL. GFR 65 (seen GFR 65 on 02/20/2020). ED provider requested patient be admitted to the hospital with the diagnosis of a UTI and fall. The patient was admitted under the [facility] Hospitalist Team. I assessed the patient in ED 9. The son was at bedside. The patient's breath ing was even, unlabored, in no distress. Patient denied any pain. I informed them of labs, diagnostics, and plan of care. They verbalized understanding and are in agreement with the plan. Plan and assessment are listed below. REVIEW OF SYSTEMS 12-point ROS reviewed with the patient. All pertinent positives mentioned above. Otherwise negative, noncontributory, non-pertinent. PAST MEDICAL HISTORY: As mentioned above PAST SURGICAL HISTORY: Bilateral knee surgery PAST SOCIAL HISTORY: Denied alcohol, tobacco, illicit drug use FAMILY HISTORY: Obesity Coded Allergies: No Known Drug Allergies (Unverified Allergy, 03/26/12) PHYSICAL EXAM GENERAL APPEARANCE: The patient is awake, alert, and oriented, in no acute cardiopulmonary distress. NEUROLOGICAL: Cranial nerves II-XII grossly intact. Motor is 5/5 in bilateral upper and lower extremities proximal to distal. No sensory deficits. HEENT: Face is symmetric. Pupils are equal and reactive. Extraocular movements are intact. NECK: Supple. No JVD. No thyromegaly. No submental, submandibular, pre-/postauricular, occipital or supraclavicular lymphadenopathy. CHEST: Normal chest expansion. No Telemetry. LUNGS: Absence of any rales, rhonchi or any wheezing. CARDIOVASCULAR: Regular. S1 and S2 normal. No appreciable rubs, murmurs or gallops. ABDOMEN: Soft, nontender, and nondistended. There is no rebound, voluntary guarding, or rigidity. : Deferred. No Nieves. EXTREMITIES: Non-edematous and not cyanotic. No clubbing. Good capillary refill. SKIN: No skin breakdown. Vital Sign (Last 24 Hours) 04/13/25 19:29 Temp 97.9 Pulse 66 Resp 18 B/P (MAP) 123/50 Pulse Ox 95 O2 Delivery Room Air* O2 Flow Rate 0 FiO2 21 LABS: Laboratory: Test 04/13/25 18:28 04/13/25 17:52 Range/Units White Blood Count 7.7 4.8-10.8 K/uL Red Blood Count 3.97 L 4.00-5.50 MIL/uL Hemoglobin 12.4 12.0-16.0 g/dL Hematocrit 37.8 36-48 % Mean Corpuscular Volume 95.2 79-99 fL Mean Corpuscular Hemoglobin 31.2 27.0-33.0 pg Mean Corpuscular Hemoglobin Concent 32.8 32.0-36.0 g/dL Red Cell Distribution Width 12.6 11.0-15.5 % Platelet Count 229 130-400 K/uL Mean Platelet Volume 9.5 7.5-10.5 fL Immature Granulocyte % (Auto) 0.4 0-1 % Neutrophils (%) (Auto) 68.9 40.0-77.0 % Lymphocytes (%) (Auto) 19.9 L 21.0-51.0 % Monocytes (%) (Auto) 9.1 3.0-13.0 % Eosinophils (%) (Auto) 1.2 0.0-8.0 % Basophils (%) (Auto) 0.5 0.0-5.0 % Neutrophils # (Auto) 5.3 1.8-7.7 K/uL Lymphocytes # (Auto) 1.5 1.0-4.8 K/uL Monocytes # (Auto) 0.7 0.1-1.0 K/uL Eosinophils # (Auto) 0.09 0.00-0.70 K/uL Basophils # (Auto) 0.04 0.00-0.20 K/uL Absolute Immature Granulocyte (auto 0.03 0-1 K/uL Nucleated Red Blood Cells 0.0 0.0-0.19 % Sodium Level 141 136-145 mmol/L Potassium Level 4.2 3.5-5.1 mmol/L Chloride Level 106 101-111 mmol/L Carbon Dioxide Level 26 21-32 mmol/L Blood Urea Nitrogen 32 H 7-18 mg/dL Creatinine 0.9 0.5-1.0 mg/dL Glomerular Filtration Rate Calc 65 >90 mL/min Random Glucose 98 70-105 mg/dL Total Calcium 10.3 H 8.5-10.1 mg/dL Urine Color YELLOW YELLOW Urine Appearance TURBID CLEAR Urine pH 8.0 5.0-8.0 Urine Specific [place] 1.020 1.001-1.031 Urine Protein 50 H NEGATIVE mg/dL Urine Glucose (UA) NEGATIVE NEGATIVE mg/dL Urine Ketones NEGATIVE NEGATIVE mg/dL Urine Occult Blood SMALL H NEGATIVE Urine Nitrate NEGATIVE NEGATIVE Urine Bilirubin NEGATIVE NEGATIVE mg/dL Urine Urobilinogen 2.0 H 0.2-1.0 mg/dL Urine Leukocyte Esterase 500 H NEGATIVE Wanda/uL Urine RBC 6-10 H 0-1 /HPF Urine WBC 51-100 H 0-1 /HPF Urine Squamous Epithelial Cells RARE 0-2 /HPF Urine Non-Squamous Epithelial Cells 3 0-2 /HPF Urine Other Crystals (Auto) 21 None Seen /HPF Urine Bacteria FEW None Seen /HPF Urine Yeast RARE None Seen /HPF Current Medications Medications (Trade) Dose Ordered Sig/Nain Route PRN Reason Start Time Stop Time Status Last Admin Dose Admin Acetaminophen (TYLenol 325MG TAB) 650 mg Q6H PRN PO FEVER/MILD PAIN LEVEL 1-3 04/13/25 19:30 05/13/25 19:29 UNV Acetaminophen (TYLenol 650MG SUPPOSITORY) 650 mg Q6H PRN RC FEVER / MILD PAIN 1-3 IF NPO 04/13/25 19:30 05/13/25 19:29 UNV Acetaminophen/ Hydrocodone Bitart (NORco 5/325MG) 1 tab Q6H PRN PO MILD PAIN (1-3) 04/13/25 19:30 04/18/25 19:29 UNV Dextrose (D50w) 50 ml AD PRN IV HYPOGLYCEMIA PROTOCOL 04/13/25 19:30 05/13/25 19:29 UNV Docusate Sodium (COLace 100MG CAP) 100 mg BID PRN PO CONSTIPATION 04/13/25 19:30 05/13/25 19:29 UNV Glucagon (Glucagon 1mg Kit) 1 mg AD PRN IM HYPOGLYCEMIA PROTOCOL 04/13/25 19:30 05/13/25 19:29 UNV Insulin Human Regular (humuLIN R 100 UNIT/ML 3ML) INSULIN SLIDING SCAL... ACHS SQ 04/13/25 21:00 05/13/25 20:59 UNV Ketorolac Tromethamine (toRADol) 15 mg Q6H PRN IM MODERATE PAIN (4-6) 04/13/25 19:30 04/18/25 19:29 UNV Labetalol HCl (TRANdate 20MG SYG) 10 mg Q2H PRN IV SBP GREATER THAN 160 04/13/25 19:30 05/13/25 19:29 UNV Lactulose (Constulose 20gm/ 30ml Udcup) 20 gm Q6H PRN PO CONSTIPATION 04/13/25 19:30 05/13/25 19:29 UNV Magnesium Sulfate 50 ml @ 0 mls/hr PROTOCOL PRN IV MAGNESIUM PROTOCOL 04/13/25 19:30 05/13/25 19:29 UNV Ondansetron HCl (zoFRAN 4MG INJ) 4 mg Q6H PRN IVP NAUSEA/VOMITING 04/13/25 19:30 05/13/25 19:29 UNV Potassium Chloride 100 ml @ 100 mls/hr AD PRN IV POTASSIUM PROTOCOL 04/13/25 19:30 05/13/25 19:29 UNV Potassium Chloride (K-Dur/Klor-Con 20meq) 10 meq AD PRN PO POTASSIUM PROTOCOL 04/13/25 19:30 05/13/25 19:29 UNV Potassium Chloride (KCl 10% Elixir 20meq/15ml) 10 meq AD PRN PO POTASSIUM PROTOCOL 04/13/25 19:30 05/13/25 19:29 UNV Temazepam (restORIL 15 MG CAP) 15 mg HS PRN PO INSOMNIA/SLEEP 04/13/25 19:30 05/13/25 19:29 UNV DIAGNOSTICS / RADIOLOGY: [ ] ASSESSMENT: Left hip pain s/p mechanical fall injury Mild to moderate degenerative changes to left hip, per CT on 04/13/2025 Slight central protrusio defect, per left hip CT on 04/13/2025 Acute complicated cystitis, POA Acute on chronic kidney disease, GFR 65 Erythrocytopenia/anemia Hypertension, POA Dementia Paranoia PLAN: -Admit to Medical floor with continuous telemetry monitoring and fall precautions. -Rocephin 2 g IV daily. -Resume home medication losartan. Reconcile remaining medications once available. -PRN medications for: Pain management, fever, hypertension, N/V, constipation. -Monitor respiratory status. -Oxygen therapy as needed. Titrate oxygen prn to keep Spo2>/+=92%. -Glucometer checks AC & HS needed with insulin regular sliding scale coverage as needed. -Blood pressure checks every 4 hours and as needed. - Monitor renal and liver function. -Monitor electrolytes and treat accordingly PRN -AM labs. -GI and DVT prophylaxis -Further plan/orders per hospitalization course. ADVANCED CARE PLANNING 1. Which of the following were discussed? Hospice Care - No Therapeutic options - Yes Advance Directives - Yes Other discussions - 2. Discussed with who? The patient 3. Voluntary nature of this service was explained to the patient? Yes 4. Amount of time spent - __ Over 35 minutes 5. Reviewed by Physician? (if this service was performed by ELIE) Yes ATTESTATION BY PHYSICIAN I have seen and examined the patient. I reviewed the documentation, medical decision making, and treatment plan as noted by the resident provider above. I agree with the findings and plan of care. MEÑO LORA [facility] Apr 13, 2025 19:39
--- NOTE | 2025-04-13 19:58 | NUR ---
RE: MEDICATION RECONCILIATION SPOKE TO DAUGHTER ON THE PHONE, PT TAKES LOSARTAN 50MG DAILY
[2025-04-14] VITALS (8 sets, daily range): BP systolic 119–156; BP diastolic 44–65; PULSE 52–72; RESP 16–20; TEMP 97.6–98.6; O2SAT 97–99
[2025-04-14 05:50] LABS: NUCLEATED RED BLOOD CELLS 0.0 % (0.0-0.19); PLATELET COUNT (AUTO) 229.0 K/uL (130-400); RED BLOOD CELL COUNT(AUTO) 4.07 MIL/uL (4.00-5.50); RED CELL DISTRIBUTION WIDTH 12.7 % (11.0-15.5); WHITE BLOOD COUNT (AUTO) 6.7 K/uL (4.8-10.8)
[2025-04-14 06:19] LABS: ASPARTATE AMINOTRANSFERASE 22.0 U/L (10-37); CREATININE 0.9 mg/dL (0.5-1.0); GLOMERULAR FILTR. RATE CALC 65.0 mL/min (>90); GLUCOSE,RANDOM 112.0 mg/dL (70-105); PHOSPHORUS 3.0 mg/dL (2.5-4.9); SODIUM SERUM 144.0 mmol/L (136-145); TOTAL PROTEIN, SERUM 6.9 g/dL (6.0-8.3); UREA NITROGEN, BLOOD 38.0 mg/dL (7-18)
[2025-04-14] MEDS: MAGNESIUM 2GM PREMIX 50ML 50 ML IV PRN (06:50)
--- NOTE | 2025-04-14 09:46 | NUR ---
DCP:HOME Pt currently lives alone in her home. Pt does not report insecurities with food, senior care, and/or utilities. Pt has a cane that she uses at home to ambulate. Pt does have provider services for 5hrs a day and they assist with home management and meals. PCP is Hattie Ha and uses [facility] for any RX needs. At [place] pt will want to go home and family can assist with transportation. Addendum: 04/14/25 at 0948 by IVONNE RAGLAND SS Amended: Links added.
[2025-04-14] MEDS: FAMOTIDINE 20MG VIAL IV SCH (10:40)
--- NOTE | 2025-04-14 15:35 | NUR ---
GAVE REPORT TO RANGEL WONG.
--- NOTE | 2025-04-14 15:49 | NUR ---
PATIENT TRANSFERRED TO ROOM 422. ALL BELONGINGS ARE WITH PATIENT.
[2025-04-14] MEDS ORDERED: AMOX1TAB16 PO (16:32)
--- NOTE | 2025-04-14 17:48 | HMCIMG ---
EXAM: CR right Shoulder, 4 View. CLINICAL HISTORY: right shoulder pain due to fall COMPARISON: None provided. FINDINGS: BONES: No acute fracture or aggressive appearing osseous lesion. JOINTS: Mild to moderate degenerative changes acromioclavicular joint Mild to moderate degenerative changes glenohumeral joint SOFT TISSUES: The soft tissues are unremarkable. IMPRESSION: 1. Mild to moderate degenerative changes acromioclavicular joint 2. Mild to moderate degenerative changes glenohumeral joint /[place]
--- NOTE | 2025-04-14 18:13 | PN ---
[facility] PROGRESS NOTE Date of Service: Apr 14, 2025 Time of Service: 17:37 SUBJECTIVE: Ms. Ann is a 79-year-old female with a history of dementia, paranoia, and hypertension who presented to [facility] ED for evaluation of left hip pain s/p fall injury. Per patient she was walking into the shower slipped landing on her left hip. The patient stated that she was on the floor for hours until her daughter came to visit her. She reports that she lives alone. Son at bedside reports that patient has slight dementia, is very forgetful and stubborn, and does not want to live with her family members. He reports that she has fallen before and that the prior time he told her that her niece/legs gave out. CT left hip: 1. Mild to moderate degenerative changes. 2. No fracture evident. 3. Slight central protrusio defect. 4. No evidence of hematoma. UA positive for leuk EST. Labs are unremarkable. WBCs WNL. GFR 65 (seen GFR 65 on 02/20/2020). ED provider requested patient be admitted to the hospital with the diagnosis of a UTI and fall. The patient was admitted under the [facility] Hospitalist Team. I assessed the patient in ED 9. The son was at bedside. The patient's breathing was even, unlabored, in no distress. Patient denied any pain. I informed them of labs, diagnostics, and plan of care. They verbalized understanding and are in agreement with the plan. Plan and assessment are listed below. 04.14.2025 patient was seen at the bedside in ED 9. her son was there at the bedside. Patient complained of right shoulder pain, due to the impact of fall. X- ray right shoulder done and the imaging shows no evidence of fractures. patient denies hip pain, nausea, vomiting or headache. patient denies urinary frequency, urgency, burning micturation or hematuria. patient's urine analysis shows postive for leucocyte esterase, started on rocephin. labs-BUN:38, calcium:10.3, M.7 REVIEW OF SYSTEMS 12-point ROS reviewed with the patient. All pertinent positives mentioned above. Otherwise negative, noncontributory, non-pertinent. PHYSICAL EXAM GENERAL APPEARANCE: The patient is awake, alert, and oriented, in no acute cardiopulmonary distress. NEUROLOGICAL: Cranial nerves II-XII grossly intact. Motor is 5/5 in bilateral upper and lower extremities proximal to distal. No sensory deficits. HEENT: Face is symmetric. Pupils are equal and reactive. Extraocular movements are intact. NECK: Supple. No JVD. No thyromegaly. No submental, submandibular, pre- /postauricular, occipital or supraclavicular lymphadenopathy. CHEST: Normal chest expansion. No Telemetry. LUNGS: Absence of any rales, rhonchi or any wheezing. CARDIOVASCULAR: Regular. S1 and S2 normal. No appreciable rubs, murmurs or gallops. ABDOMEN: Soft, nontender, and nondistended. There is no rebound, voluntary guarding, or rigidity. : Deferred. No Nieves. EXTREMITIES: Non-edematous and not cyanotic. No clubbing. Good capillary refill. SKIN: No skin breakdown. Vital Signs (last 8hr) Date Time Temp Pulse Resp B/P (MAP) Pulse Ox O2 Delivery O2 Flow Rate FiO2 04/14/25 16:10 98.6 72 20 144/61 100 Room Air 04/14/25 15:44 97.5 52 17 119/44 100 Room Air 04/14/25 12:00 97.5 57 16 132/51 99 Room Air LABS: Laboratory: Test 04/14/25 11:14 04/14/25 10:55 04/14/25 05:20 04/13/25 18:28 Range/Units Whole Blood Glucose 108 70-110 MG/DL Total Creatine Kinase 245 #H 21-232 U/L Procalcitonin < 0.05 L 0.05-0.5 ng/mL White Blood Count 6.7 4.8-10.8 K/uL Red Blood Count 4.07 4.00-5.50 MIL/uL Hemoglobin 12.7 12.0-16.0 g/dL Hematocrit 39.1 36-48 % Mean Corpuscular Volume 96.1 79-99 fL Mean Corpuscular Hemoglobin 31.2 27.0-33.0 pg Mean Corpuscular Hemoglobin Concent 32.5 32.0-36.0 g/dL Red Cell Distribution Width 12.7 11.0-15.5 % Platelet Count 229 130-400 K/uL Mean Platelet Volume 9.5 7.5-10.5 fL Nucleated Red Blood Cells 0.0 0.0-0.19 % Sodium Level 144 136-145 mmol/L Potassium Level 4.3 3.5-5.1 mmol/L Chloride Level 107 101-111 mmol/L Carbon Dioxide Level 28 21-32 mmol/L Blood Urea Nitrogen 38 H 7-18 mg/dL Creatinine 0.9 0.5-1.0 mg/dL Glomerular Filtration Rate Calc 65 >90 mL/min Random Glucose 112 H 70-105 mg/dL Total Calcium 10.3 H 8.5-10.1 mg/dL Phosphorus Level 3.0 2.5-4.9 mg/dL Magnesium Level 1.70 L 1.80-2.40 mg/dL Total Bilirubin 0.9 0.2-1.0 mg/dL Aspartate Amino Transf (AST/SGOT) 22 10-37 U/L Alanine Aminotransferase (ALT/SGPT) 18 12-78 U/L Alkaline Phosphatase 124 50-136 U/L C-Reactive Protein, Quantitative 52.20 H 0.5-3.0 mg/L Total Protein 6.9 6.0-8.3 g/dL Albumin 3.4 L 3.5-5.0 g/dL Thyroid Stimulating Hormone (TSH) 1.36 0.36-3.74 uIU/mL Immature Granulocyte % (Auto) 0.4 0-1 % Neutrophils (%) (Auto) 68.9 40.0-77.0 % Lymphocytes (%) (Auto) 19.9 L 21.0-51.0 % Monocytes (%) (Auto) 9.1 3.0-13.0 % Eosinophils (%) (Auto) 1.2 0.0-8.0 % Basophils (%) (Auto) 0.5 0.0-5.0 % Neutrophils # (Auto) 5.3 1.8-7.7 K/uL Lymphocytes # (Auto) 1.5 1.0-4.8 K/uL Monocytes # (Auto) 0.7 0.1-1.0 K/uL Eosinophils # (Auto) 0.09 0.00-0.70 K/uL Basophils # (Auto) 0.04 0.00-0.20 K/uL Absolute Immature Granulocyte (auto 0.03 0-1 K/uL Hemoglobin A1c 5.3 4.0-6.0 % Estimated Average Glucose (eAG) 105 70-126 mg/dL Test 04/13/25 17:52 Range/Units Urine Color YELLOW YELLOW Urine Appearance TURBID CLEAR Urine pH 8.0 5.0-8.0 Urine Specific [place] 1.020 1.001-1.031 Urine Protein 50 H NEGATIVE mg/dL Urine Glucose (UA) NEGATIVE NEGATIVE mg/dL Urine Ketones NEGATIVE NEGATIVE mg/dL Urine Occult Blood SMALL H NEGATIVE Urine Nitrate NEGATIVE NEGATIVE Urine Bilirubin NEGATIVE NEGATIVE mg/dL Urine Urobilinogen 2.0 H 0.2-1.0 mg/dL Urine Leukocyte Esterase 500 H NEGATIVE Wanda/uL Urine RBC 6-10 H 0-1 /HPF Urine WBC 51-100 H 0-1 /HPF Urine Squamous Epithelial Cells RARE 0-2 /HPF Urine Non-Squamous Epithelial Cells 3 0-2 /HPF Urine Other Crystals (Auto) 21 None Seen /HPF Urine Bacteria FEW None Seen /HPF Urine Yeast RARE None Seen /HPF Current Medications Medications (Trade) Dose Ordered Sig/Nain Route PRN Reason Start Time Stop Time Status Last Admin Dose Admin Acetaminophen (TYLenol 325MG TAB) 650 mg Q6H PRN PO FEVER/MILD PAIN LEVEL 1-3 04/13/25 19:30 05/13/25 19:29 Acetaminophen (TYLenol 650MG SUPPOSITORY) 650 mg Q6H PRN RC FEVER / MILD PAIN 1-3 IF NPO 04/13/25 19:30 05/13/25 19:29 Acetaminophen/ Hydrocodone Bitart (NORco 5/325MG) 1 tab Q6H PRN PO MODERATE PAIN (4-6) 04/13/25 19:30 04/18/25 19:29 Acetaminophen/ Hydrocodone Bitart (NORco 5/325MG) 2 tab Q6H PRN PO SEVERE PAIN (7-10) 04/13/25 20:00 04/18/25 19:59 Ceftriaxone Sodium (Rocephin 2gm Inj) 2 gm Q24H IVPB 04/14/25 18:30 04/24/25 18:29 Dextrose (D50w) 50 ml AD PRN IV HYPOGLYCEMIA PROTOCOL 04/13/25 19:30 05/13/25 19:29 Docusate Sodium (COLace 100MG CAP) 100 mg BID PRN PO CONSTIPATION 04/13/25 19:30 05/13/25 19:29 Famotidine (Pepcid 20mg Vial) 20 mg Q24H IV 04/14/25 10:00 05/14/25 09:59 04/14/25 10:40 20 MG Glucagon (Glucagon 1mg Kit) 1 mg AD PRN IM HYPOGLYCEMIA PROTOCOL 04/13/25 19:30 05/13/25 19:29 Insulin Human Regular (humuLIN R 100 UNIT/ML 3ML) INSULIN SLIDING SCAL... ACHS SQ 04/13/25 21:00 05/13/25 20:59 Ketorolac Tromethamine (toRADol) 15 mg Q6H PRN IM MODERATE PAIN (4-6) IF NPO 04/13/25 19:30 04/18/25 19:29 Labetalol HCl (TRANdate 20MG SYG) 10 mg Q2H PRN IV SBP GREATER THAN 160 04/13/25 19:30 05/13/25 19:29 Lactulose (Constulose 20gm/ 30ml Udcup) 20 gm Q6H PRN PO CONSTIPATION 04/13/25 19:30 05/13/25 19:29 Losartan Potassium (CozAAR 50 mg TAB) 50 mg DAILY PO 04/14/25 09:00 05/14/25 08:59 04/14/25 08:49 50 MG Magnesium Sulfate 50 ml @ 0 mls/hr PROTOCOL PRN IV MAGNESIUM PROTOCOL 04/13/25 19:30 05/13/25 19:29 04/14/25 06:50 0 MLS/HR Ondansetron HCl (zoFRAN 4MG INJ) 4 mg Q6H PRN IVP NAUSEA/VOMITING 04/13/25 19:30 05/13/25 19:29 04/14/25 06:19 4 MG Potassium Chloride 100 ml @ 100 mls/hr AD PRN IV POTASSIUM PROTOCOL 04/13/25 19:30 05/13/25 19:29 Potassium Chloride (K-Dur/Klor-Con 20meq) 10 meq AD PRN PO POTASSIUM PROTOCOL 04/13/25 19:30 05/13/25 19:29 Potassium Chloride (KCl 10% Elixir 20meq/15ml) 10 meq AD PRN PO POTASSIUM PROTOCOL 04/13/25 19:30 05/13/25 19:29 Temazepam (restORIL 15 MG CAP) 15 mg HS PRN PO INSOMNIA/SLEEP 04/13/25 19:30 05/13/25 19:29 DIAGNOSTICS / RADIOLOGY: [facility] [address] [place] [address] [id number] IMAGING REPORT Signed PATIENT: SUSAN ANN MR#: [id number] : 1945 SEX: F AGE: 79 LOCATION: [facility] ORDER 46 STATUS: REG ER REPORT#: [id number] SERVICE 45 REASON: left hip pain ORDERING PHYSICIAN: NAIMA ADAMES MD PROCEDURE: LOW EXT WO - CT LOW EXT W/O CONTRAST EXAM: CT left Hip, without IV contrast. CLINICAL HISTORY: left hip pain TECHNIQUE: Axial images were acquired through the left hip without IV contrast. Reformatted images were reviewed. COMPARISON: None provided. FINDINGS: BONES: No fracture evident. JOINTS: Mild to moderate degenerative changes SOFT TISSUES: No evidence of hematoma MISCELLANEOUS: Slight central protrusio defect. IMPRESSION: 1. Mild to moderate degenerative changes 2. No fracture evident. 3. Slight central protrusio defect. 4. No evidence of hematoma /[place] DICTATED BY: SHYANNE RAMIREZ MD DATE: 04/13/251955 ELECTRONICALLY SIGNED BY: SHYANNE RAMIREZ MD DATE: 04/13/251955 [facility] [address] [place] [address] [id number] IMAGING REPORT Addendum PATIENT: SUSAN ANN MR#: [id number] : 1945 SEX: F AGE: 79 LOCATION: ED ORDER 55 STATUS: REG ER REPORT#: [id number] SERVICE 55 REASON: fall ORDERING PHYSICIAN: NAIMA ADAMES MD PROCEDURE: HIPS B 3V - HIP BILAT 3-4VW ADDENDUM REPORT ADDENDUM: Results were shared by telephone at 19:30 pm on 04-13-[address] Magdalena, Naima /[place] EXAM: CR left Hip, 1 View. CLINICAL HISTORY: fall COMPARISON: None provided. FINDINGS: BONES: Protrusio defect left hip equivocal left hip subcapital fracture. Correlation with CT scan recommended JOINTS: Degenerative changes SOFT TISSUES: The soft tissues are unremarkable. IMPRESSION: 1. Degenerative changes 2. Protrusio defect left hip equivocal left hip subcapital fracture. Correlation with CT scan recommended /[place] DICTATED BY: SHYANNE RAMIREZ MD DATE: 04/13/251934 ELECTRONICALLY SIGNED BY: DATE: EXAM: CR left Hip, 1 View. CLINICAL HISTORY: fall COMPARISON: None provided. FINDINGS: BONES: Protrusio defect left hip equivocal left hip subcapital fracture. Correlation with CT scan recommended JOINTS: Degenerative changes SOFT TISSUES: The soft tissues are unremarkable. IMPRESSION: 1. Degenerative changes 2. Protrusio defect left hip equivocal left hip subcapital fracture. Correlation with CT scan recommended /[place] DICTATED BY: SHYANNE RAMIREZ MD DATE: 04/13/251920 ELECTRONICALLY SIGNED BY: SHYANNE RAMIREZ MD DATE: 04/13/251920 ASSESSMENT: Left hip pain s/p mechanical fall injury Mild to moderate degenerative changes to left hip, per CT on 04/13/2025 Slight central protrusio defect, per left hip CT on 04/13/2025 Asymptomatic bacteruria Chronic conditions: Hypertension, Dementia, Paranoia, Chronic kidney disease PLAN: Mechanical fall injury CT hip shows no evidence of fracture Right shoulder X-ray shows no evidence of fracture Hydrocodone 2 tab PRN for pain management continue monitoring follow fall precautions follow goal directed medical therapy Asymptomatic bacteruria rocephin 1g iv prescribed educate regarding adequate hydration HTN, Dementia, Paranoia continue all the home medications Hypercalcemia Adequate hydration ordered PTH DVT prophylaxis with SCDs GI prophylaxis with 20 mg famotidine BID Plan to discharge the patient to SNF, awaiting case management evaluation. ATTESTATION BY PHYSICIAN I have seen and examined the patient. I reviewed the documentation, medical decision making, and treatment plan as noted by the resident provider above. I agree with the findings and plan of care. Javed Ashraf MD, LAKSHMI MD Apr 14, 2025 18:13
[2025-04-15 03:47] VITALS: BP 148/54; PULSE 62; RESP 16; TEMP 98
[2025-04-15 07:24] VITALS: O2SAT 98
[2025-04-15 08:20] VITALS: BP 135/67; PULSE 89; RESP 18; TEMP 97.6
--- NOTE | 2025-04-15 08:20 | NUR ---
NOTIFIED PRIMARY TEAM RESIDENT ON ROUNDS PATIENT UPSET WANTS TO GO HOME , PT REMOVED IV EARLIER WITH CONDUCTOR SLEEPING CAR WAS ABLE TO GET ROCEPHIN X 1 LAST NIGHT , THEN REFUSED TO HAVE ANOTHER IV, PATIENT ALSO REFUSING LABS. PER RESIDENT PATIENT WILL BE GOING HOME NO NEED FOR ANOTHER IV JUST WAITING ON CASE MANAGEMENT. SON IN ROOM
--- NOTE | 2025-04-15 09:19 | EKG ---
Formerly [facility] Test Date: 2025-04-15 Test Time: 09:14:47 Pat Name: SUSAN ROTH Department: [facility] Room: 402 1 Gender: F Automatic Hemmer: DEVORAH : 1945 Requested By: TERRI BYRD Order Number: [id number] Reading MD: Keyona Vázquez Measurements Intervals [place] Rate: 67 P: 54 NM: 130 QRS: 17 QRSD: 82 T: 37 QT: 394 QTc: 416 Interpretive Statements Normal sinus rhythm Possible Left atrial enlargement Compared to ECG 06/09/2019 10:18:57 Sinus bradycardia no longer present Electronically Signed On 04-15-2025 14:51:51 CDT by Keyona Vázquez Please click the below link to view image of tracing.
[2025-04-15] MEDS: 0.9%NACL 1000ML 1,000 ML IV SCH (09:24)
[2025-04-15] MEDS: 0.9% NACL 250ML 250 ML IV ONE (09:25)
[2025-04-15 10:19] LABS: IMMATURE GRANULOCYTE ABSOLUTE 0.04 K/uL (0-1); NUCLEATED RED BLOOD CELLS 0.0 % (0.0-0.19); PLATELET COUNT (AUTO) 250 K/uL (130-400); RED BLOOD CELL COUNT(AUTO) 4.19 MIL/uL (4.00-5.50); RED CELL DISTRIBUTION WIDTH 12.6 % (11.0-15.5); WHITE BLOOD COUNT (AUTO) 7.9 K/uL (4.8-10.8)
[2025-04-15 10:24] LABS: CREATININE 0.9 mg/dL (0.5-1.0); GLOMERULAR FILTR. RATE CALC 65.0 mL/min (>90); GLUCOSE,RANDOM 130.0 mg/dL (70-105); SODIUM SERUM 141.0 mmol/L (136-145); UREA NITROGEN, BLOOD 31.0 mg/dL (7-18)
[2025-04-15 11:06] VITALS: BP 130/63; PULSE 80; RESP 16; TEMP 97.6
[2025-04-15] MEDS ORDERED: LEVO-70 PO (12:52)
--- NOTE | 2025-04-15 12:57 | DS ---
Discharge Summary Hospital Course Summary: Ms. Ann is a 79-year-old female with a history of dementia, paranoia, and hypertension who presented to [facility] ED for evaluation of left hip pain s/p fall injury. Patient reported that she was walking into the shower slipped landing on her left hip. The patient stated that she was on the floor for hours until her daughter came to visit her. She reports that she lives alone. Son at bedside reports that patient has slight dementia, is very forgetful and stubborn, and does not want to live with her family members. He reports that she has fallen before and that the prior time he told her that her niece/legs gave out. CT of the left hip shows mild to moderate degenerative changes, No evidence of fracture, Slight central protrusio defect and No evidence of hematoma. Urine analysis is positive for leukocyte esterase and GFR 65 (seen GFR 65 on 02/20/2020). Patient was assessed in ED 9 on 04.14.2025. The son was at bedside. The patient's breathing was even, unlabored, in no distress. Patient complained of pain in right shoulder, due to impact of fall. X- ray right shoulder done and the imaging shows no evidence of fractures. patient denies hip pain, nausea, vomiting or headache. patient denies urinary frequency, urgency, burning micturition or hematuria. patient's urine analysis is positive for leucocyte esterase, started on Rocephin. labs-BUN:38, calcium:10.3, M.7. Patient was given IV fluids to ensure adequate hydration in the management of hypercalcemia probably due to d ehydration and ordered PTH for further evaluation which is found to be within normal limits. Patient was assessed in room 402 on 04.15.2025. patient did not report any pain and wants to go home. patient removed her IV cannula and refused the labs. Urine culture shows positive for proteus mirabilis, stopped Rocephin and started on Levofloxacin 500mg one tab daily for 7 days. Case management was consulted. We informed them of labs, diagnostics, and plan of care. They verbalized understanding and are in agreement with the plan of discharge. Wholesale Account Executive(s): None Procedure(s): PATIENT: SUSAN ANN MR#: [id number] : 1945 SEX: F AGE: 79 LOCATION: [facility] ORDER STATUS: ADM IN REPORT#: [id number] SERVICE 0 REASON: right shoulder pain due to fall ORDERING PHYSICIAN: TERRI YBRD MD PROCEDURE: SHOL 2V RT - SHOULDER COMP 2+VWS RT EXAM: CR right Shoulder, 4 View. CLINICAL HISTORY: right shoulder pain due to fall COMPARISON: None provided. FINDINGS: BONES: No acute fracture or aggressive appearing osseous lesion. JOINTS: Mild to moderate degenerative changes acromioclavicular joint Mild to moderate degenerative changes glenohumeral joint SOFT TISSUES: The soft tissues are unremarkable. IMPRESSION: 1. Mild to moderate degenerative changes acromioclavicular joint 2. Mild to moderate degenerative changes glenohumeral joint /[place] DICTATED BY: SHYANNE RAMIREZ MD DATE: 04/14/251847 ELECTRONICALLY SIGNED BY: SHYANNE RAMIREZ MD DATE: 04/14/251847 PATIENT: SUSAN ANN MR#: [id number] : 1945 SEX: F AGE: 79 LOCATION: [facility] ORDER 46 STATUS: REG ER REPORT#: [id number] SERVICE 45 REASON: left hip pain ORDERING PHYSICIAN: NAIMA ADAMES MD PROCEDURE: LOW EXT WO - CT LOW EXT W/O CONTRAST EXAM: CT left Hip, without IV contrast. CLINICAL HISTORY: left hip pain TECHNIQUE: Axial images were acquired through the left hip without IV contrast. Reformatted images were reviewed. COMPARISON: None provided. FINDINGS: BONES: No fracture evident. JOINTS: Mild to moderate degenerative changes SOFT TISSUES: No evidence of hematoma MISCELLANEOUS: Slight central protrusio defect. IMPRESSION: 1. Mild to moderate degenerative changes 2. No fracture evident. 3. Slight central protrusio defect. 4. No evidence of hematoma /[place] DICTATED BY: SHYANNE RAMIREZ MD DATE: 04/13/251955 ELECTRONICALLY SIGNED BY: SHYANNE RAMIREZ MD DATE: 04/13/251955 PATIENT: SUSAN ANN MR#: [id number] : 1945 SEX: F AGE: 79 LOCATION: [facility] ORDER 55 STATUS: REG ER REPORT#: [id number] SERVICE 55 REASON: fall ORDERING PHYSICIAN: NAIMA ADAMES MD PROCEDURE: HIPS B 3V - HIP BILAT 3-4VW ADDENDUM REPORT ADDENDUM: Results were shared by telephone at 19:30 pm on 04-13-25 and acknowledged by Naima [place] /[place] EXAM: CR left Hip, 1 View. CLINICAL HISTORY: fall COMPARISON: None provided. FINDINGS: BONES: Protrusio defect left hip equivocal left hip subcapital fracture. Correlation with CT scan recommended JOINTS: Degenerative changes SOFT TISSUES: The soft tissues are unremarkable. IMPRESSION: 1. Degenerative changes 2. Protrusio defect left hip equivocal left hip subcapital fracture. Correlation with CT scan recommended /[place] DICTATED BY: SHYANNE RAMIREZ MD DATE: 04/13/251934 ELECTRONICALLY SIGNED BY: DATE: EXAM: CR left Hip, 1 View. CLINICAL HISTORY: fall COMPARISON: None provided. FINDINGS: BONES: Protrusio defect left hip equivocal left hip subcapital fracture. Correlation with CT scan recommended JOINTS: Degenerative changes SOFT TISSUES: The soft tissues are unremarkable. IMPRESSION: 1. Degenerative changes 2. Protrusio defect left hip equivocal left hip subcapital fracture. Correlation with CT scan recommended /[place] DICTATED BY: SHYANNE RAMIREZ MD DATE: 04/13/251920 ELECTRONICALLY SIGNED BY: SHYANNE RAMIREZ MD DATE: 04/13/251920 Assessment/Plan: ASSESSMENT: Urinary tract infection due to Proteus mirabilis POA Dehydration POA Left hip pain s/p mechanical fall injury Mild to moderate degenerative changes to left hip, per CT on 04/13/2025 Slight central protrusio defect, per left hip CT on 04/13/2025 Chronic conditions: Hypertension, Dementia, Paranoia, Chronic kidney disease Discharge Instructions: Take the antibiotic as directed. Continue all the home medications hold the home medication namzaric due to QT prolongation for the next 9 days , and it can be continued after the discontinuation of the antibiotic. Maintain proper hydration Take regular balanced diet. Activity as tolerated and utilize ambulatory support with a cane or walker. Followup with primary physican in a week.PLEASE CALL FOR APPOINTMENT Home Medications: Active Scripts Levofloxacin (Levofloxacin) 500 Mg Tablet, 1 TAB PO DAILY for 7 Days, #7 TAB 0 Refills Prov:STEPHON LYNN MD 04/15/25 Acetaminophen (Tylenol) 325 Mg Tablet, 650 MG PO QIDP, #50 TAB Prov:FRANCISCO JAVIER HARRINGTON 07/31/21 Reported Medications Ergocalciferol (Vitamin D2) (Vitamin D2) 1,250 Mcg Capsule, 1250 MCG PO QWEEK, CAP 02/18/20 Quetiapine Fumarate (Seroquel) 25 Mg Tablet, 25 MG PO HS, TAB 02/18/20 Memantine HCl/Donepezil HCl (Namzaric 7 mg-10 mg Capsule) 1 Each Cap.spr.24, 1 EACH PO HS, CAP 02/18/20 Losartan Potassium (Losartan Potassium) 50 Mg Tablet, 50 MG PO DAILY, TAB 01/25/15 Discontinued Scripts Hydrocodone/Acetaminophen ([place] 5-325 Tablet) 1 Each Tablet, 1-2 EACH PO Q6HPRN PRN for PAIN, #60 TAB Prov:PÉREZ QUINTERO MD 02/22/20 Aspirin (ASPIRIN 81MG CHEW TAB) 81 Mg Tab.chew, 81 MG PO BID, #60 TAB.CHEW Prov:PÉREZ QUINTERO MD 02/22/20 New Medications: Levofloxacin (Levofloxacin) 500 Mg Tablet 1 TAB PO DAILY for 7 Days, #7 TAB 0 Refills Continued Medications: Acetaminophen (Tylenol) 325 Mg Tablet 650 MG PO QIDP, #50 TAB Ergocalciferol (Vitamin D2) (Vitamin D2) 1,250 Mcg Capsule 1250 MCG PO QWEEK, CAP Losartan Potassium (Losartan Potassium) 50 Mg Tablet 50 MG PO DAILY, TAB Memantine HCl/Donepezil HCl (Namzaric 7 mg-10 mg Capsule) 1 Each Cap.spr.24 1 EACH PO HS, CAP Quetiapine Fumarate (Seroquel) 25 Mg Tablet 25 MG PO HS, TAB Discontinued Medications: Aspirin (Aspirin 81MG Chew Tab) 81 Mg Tab.chew 81 MG PO BID, #60 TAB.CHEW Hydrocodone/Acetaminophen ([place] 5-325 Tablet) 1 Each Tablet 1-2 EACH PO Q6HPRN PRN for PAIN, #60 TAB Time spent arranging discharge: 1-30 minutes ATTESTATION BY PHYSICIAN I have seen and examined the patient. I reviewed the documentation, medical decision making, and treatment plan as noted by the resident provider above. I agree with the findings and plan of care. Javed Ashraf MD, KEERTI K MD Apr 15, 2025 12:57 TERRI BYRD MD Apr 15, 2025 13:48
--- NOTE | 2025-04-15 14:23 | NUR ---
DISCHARGE INSTRUCTIONS PROVIDED TO PATIENT AND SON . BOTH VERBALIZED UNDERSTANDING
== END 2025-04-15 14:00 | disposition home or self-care (01) | DRG 690 ==
LOC: EDH 16:07 → OBSVTOIN 19:28 → EDHIP 19:28 → UNDOADMOB 19:28 → INTOOBSV 19:28 → EDHIP 04-14 08:30 → OBSVTOIN 04-14 08:30 → 4AH 04-14 16:09 → EDHIP 04-14 16:09
PROVIDERS: ADMIT Internal Medicine; ATTEND Internal Medicine
DX: N30.00 Acute cystitis without hematuria (principal); F03.92 Unspecified dementia, unspecified severity, with psychotic disturbance; N17.9 Acute kidney failure, unspecified; N18.9 Chronic kidney disease, unspecified; I12.9 Hypertensive chronic kidney disease with stage 1 through stage 4 chronic kidney disease, or unspecified chronic kidney disease; D64.9 Anemia, unspecified; B96.4 Proteus (mirabilis) (morganii) as the cause of diseases classified elsewhere; E86.0 Dehydration; E83.52 Hypercalcemia; Z79.899 Other long term (current) drug therapy
CPT/HCPCS: 36415; 73030; 73522; 73700; 80048; 80053; 81001; 82550; 82948; 83036; 83735; 83970; 84100; 84145; 84443; 85025; 85027; 86140; 87086; 87186; 93005; 99285; G0378; J0696; J2405; J3475; J3490